=== PATIENT | male | born 1935 | race Caucasian/White ===

== ENCOUNTER → 2017-07-24 | Outpatient (CLI) | payer MEDICARE, BC ==
[~2017-07-24] MED LIST: ASPI-1471 PO; ASPI-757 PO; CHOL10005 PO; FLU IM; LISI-362 PO; METF-410 PO; METF500T4 PO; NAPR220C12 PO; PNEU0.5D3 IM; TAMS0.4C70 PO
--- NOTE | 2017-07-24 16:21 | RADIOLOGY IMAGING REPORT ---
FACILITY: [facility] - [place] PATIENT NAME: Jose Skelton : 1935 MR: [id number] V: [id number] EXAM DATE: ORDERING PHYSICIAN: LEIGHANN MOSCOSO TECHNOLOGIST: Location: [facility] - [place] Patient: Jose Skelton : 1935 Visit/Account:[id number] Date of Sevice: 07/24/2017 Exam type: CHEST PA AND LAT History: Hypoxia, benign hypertension Comparison: None. Findings: The lungs are free of acute effusions, infiltrates or edema. The cardiac silhouette is normal in siz e however there is marked ectasia the thoracic aorta. Mild spondylotic changes of the thoracic spine IMPRESSION: 1. Marked ectasia the thoracic aorta although no evidence of pulmonary consolidation or overt pulmon nicole edema Report Dictated By: Nichole Montgomery MD at 07/24/2017 4:16 PM Report E-Signed By: Nichole Montgomery MD at 07/24/2017 4:17 PM WSN:[email or web address]
== END ==
LOC: RAD 15:42
PROVIDERS: ATTEND Internal Medicine
DX: I77.810 Thoracic aortic ectasia (principal)
CPT/HCPCS: 71046

== ENCOUNTER → 2017-07-25 | Outpatient (CLI) | payer MEDICARE, BC ==
[~2017-07-25] MED LIST changes: +IOPAMIDOL 76% 75 ML INFUS BTL 75 ML ONE
--- NOTE | 2017-07-25 19:20 | RADIOLOGY IMAGING REPORT ---
FACILITY: [facility] - [place] PATIENT NAME: Jose Skelton : 1935 MR: [id number] V: [id number] EXAM DATE: ORDERING PHYSICIAN: LEIGHANN MOSCOSO TECHNOLOGIST: Location: [facility] - [place] Patient: Jose Skelton : 1935 Visit/Account:[id number] Date of Sevice: 07/25/2017 EXAMINATION: CTA of the chest without and with IV contrast HISTORY: Hypertension. Abnormal chest x-ray. Evaluate thoracic aorta. TECHNIQUE: Axial CT images of the chest were initially obtained without IV contrast. Thin axial CT im ages of the chest were then obtained with IV contrast during maximal arterial opacification. Reconstr uction of the source data set includes multiplanar 2D sagittal and coronal images, and 3D coronal and sagittal MIP images. [employer]ist images have been stored on PACS. One of the following dose optimization techniques was utilized in the performance of this exam: Autom ated exposure control; adjustment of the mA and/or kV according to the patient's size; or use of an i terative reconstruction technique. Specific details can be referenced in the facility's radiology C T exam operational policy. Contrast: 75 mL of IV Isovue-370. COMPARISON: Chest radiograph 07/24/2017. FINDINGS: Angiographic findings: Thoracic aorta: No aortic dissection. There is mild aneurysmal dilatation of the ascending thoracic a beverly, measuring 4.1 cm in diameter (coronal image 55). The descending thoracic aorta is moderately to rtuous but normal in caliber. The aorta measures 3.3 cm along the arch, 3.3 cm along the upper descen ding thoracic aorta, and 3.0 cm along the lower descending thoracic aorta. Origins of the great vesse ls are widely patent along the arch, with conventional arch anatomy. Mild atherosclerotic calcificati on along the aorta. Pulmonary arteries: Exam was not performed with pulmonary embolism protocol. The pulmonary arteries a re poorly opacified and not well evaluated on this exam. Heart: Normal heart size. Coronary artery calcifications. No pericardial effusion. Abdominal aorta: The abdominal aorta is visualized to below the level of the renal arteries. The imag ed abdominal aorta is mildly tortuous but patent and normal in caliber, without aneurysm or dissectio n. Abdominal aorta branch vessels: The celiac artery and SMA are widely patent. Bilaterally renal arteri es are patent, without stenosis. Additional nonvascular findings: Lungs and pleura: Negative. Mediastinum and rylie: Small hiatal hernia. Chest lymph node assessment: Negative. Bones: Negative. Chest wall: Negative. Lower neck: Negative. Upper abdomen: Cholecystectomy. Partially visualized bilateral renal cysts. IMPRESSION: 1. 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 No aortic dissection . 2. The descending thoracic aorta is tortuous but normal in caliber. 3. No acute findings in the chest on arterial phase imaging. 4. Coronary artery calcifications. 5. Small hiatal hernia. Report Dictated By: Jared King MD at 07/25/2017 7:02 PM Report E-Signed By: Jared King MD at 07/25/2017 7:17 PM WSN:[id number]
== END ==
LOC: CT 16:29
PROVIDERS: ATTEND Internal Medicine
DX: I71.4 Abdominal aortic aneurysm, without rupture (principal); I25.10 Atherosclerotic heart disease of native coronary artery without angina pectoris; K44.9 Diaphragmatic hernia without obstruction or gangrene
CPT/HCPCS: 71275; Q9967

== ENCOUNTER → 2017-07-30 | Outpatient (CLI) | payer MEDICARE, BC ==
[~2017-07-30] MED LIST changes: -IOPAMIDOL 76% 75 ML INFUS BTL 75 ML ONE
== END ==
LOC: RESP 01:43
PROVIDERS: ATTEND Internal Medicine
DX: J98.4 Other disorders of lung (principal)
CPT/HCPCS: 94060; 94729

== ENCOUNTER → 2017-09-24 | Outpatient (REF) | payer MEDICARE, BC | LOC: ZZSENDIN 16:24 → EDSTATUS 16:25 → ZZSENDIN 16:26 → EDSTATUS 16:26 | PROVIDERS: ATTEND Internal Medicine | DX: R19.7 Diarrhea, unspecified (principal) | CPT/HCPCS: 82274; 83630; 87045; 87205; 87324; 87449 ==

== ENCOUNTER 2018-11-08 17:51 | Emergency (ER) | payer MEDICARE, BC ==
[~2018-11-08 17:51] MED LIST changes: +ASPI81TA94 PO; -METF-410 PO; +METF-450 PO
[2018-11-08] MEDS ORDERED: OPTIVITE PO (17:58)
--- NOTE | 2018-11-08 18:07 | ER Report ---
History and Physical Time Seen By MD: 18:07 Hx. of Stated Complaint: pt reports pain behind his right ear starting this morning. HPI/ROS CHIEF COMPLAINT: ear pain HISTORY OF PRESENT ILLNESS: This is an 83 year old male. He had pain behind his right ear this morning. [place] like there was some fluid there. Also some pain in front of the ear. Mild discomfort with moving the jaw. He does wear hearing aides, but no change in hearing. No fevers noted. No headache. No weakness or numbness in face or problems with speech. No recent dental problems. Allergies: Coded Allergies: No Known Drug Allergies (Unverified , 11/08/18) Home Meds Active Scripts Lisinopril (LISINOPRIL) 10 Mg Tablet, 10 MG PO QDAY, #90 TAB 3 Refills Prov:LEIGHANN ANDERSON MD 12/20/17 Metformin Hcl (METFORMIN HCL ER) 500 Mg Tab.er.24, 3 TAB PO QPM, #180 TAB Prov:LEIGHANN ANDERSON MD 10/30/17 Reported Medications [optivite] No Conflict Check, 1 TAB PO DAILY 11/08/18 Aspirin (ASPIRIN) 81 Mg Tab.chew, 81 MG PO QDAY, TAB.CHEW 10/30/17 Cholecalciferol (Vitamin D3) (VITAMIN D3) 1,000 Unit Tablet, 2 TAB PO DAILY, #100 TAB 4 Refills 11/04/14 Discontinued Scripts Metformin Hcl (METFORMIN HCL ER) 500 Mg Tab.er.24, 3 TAB PO QPM, #180 TAB Prov:LEIGHANN ANDERSON MD 10/30/17 Reviewed Nurses Notes: Yes Smoking Status: Never Smoker Hx Substance Use Disorder: No Hx Alcohol Use: No Constitutional Vital Sign - Last 24 Hours 11/08/18 11/08/18 17:58 18:50 Temp 98.0 Pulse 70 76 Resp 14 16 B/P (MAP) 147/91 131/97 (108) Pulse Ox 91 91 O2 Delivery Nasal Cannula Room Air Physical Exam General Appearance: Alert, no acute distress. Eyes: Pupils equal and round no injection. ENT: Normal oral mucosa. Moist mucous membranes. Normal oral mucosa and posterior oropharynx. No swelling or redness of gums. Has some redness and mild edema in right ear canal, normal TM. Normal canal and TM on left. Pain with palpation around pinna and in front of ear. Neck: Neck is supple and non tender. Respiratory: Breathing easily. Cardiac: regular rate and rhythm Musculoskeletal: No pain in cervical spine or palpation of the skull. Skin: No lesions, mild redness around the ear. DIFFERENTIAL DIAGNOSIS: After history and physical exam differential diagnosis was considered for a patient with pain around the ear and redness consistent with otitis externa as the cause. Medical Decision Making ED Course/Re-evaluation ED Course Discussed otitis externa, will provide Cortisporin Otic suspension. Recommended follow-up with PCP, Dr. Anderson, if not improving in the next 3-4 days. Tylenol as needed for pain. Decision to Disposition Date: Nov 08, 2018 Decision to Disposition Time: 18:24 Depart Departure Latest Vital Signs Vital Signs Date Time Temp Pulse Resp B/P (MAP) Pulse Ox O2 Delivery O2 Flow Rate FiO2 11/08/18 18:50 76 16 131/97 (108) 91 Room Air 11/08/18 17:58 98.0 Impression: Primary Impression: Otitis externa Condition: Improved Disposition: HOME OR SELF-CARE Referrals: LEIGHANN ANDERSON MD (PCP) Patient Instructions: Otitis Externa (ED) Additional Instructions: Apply 4 drops of the cortisporin OTIC suspension in the ear three times a day for 7 days. Use Tylenol as needed for pain. Problem Qualifiers Primary Impression: Otitis externa Otitis externa type: unspecified type Chronicity: acute Laterality: right Qualified Codes: H60.501 - Unspecified acute noninfective otitis externa, right ear ASAD FOSTER MD Nov 08, 2018 18:07
[2018-11-08] MEDS ORDERED: POLYMYXIN B RIGHT EAR ONE ×2 (18:25→18:35)
[2018-11-08] MEDS ORDERED: HYDROCORTISONE RIGHT EAR ONE ×2 (18:25→18:35)
[2018-11-08] MEDS ORDERED: NEOMYCIN RIGHT EAR ONE ×2 (18:25→18:35)
[2018-11-08 18:50] VITALS: BP 131/97
[2018-11-09] MEDS ORDERED: AMOX-559 PO (13:05)
== END 2018-11-08 18:57 | disposition home or self-care (01) ==
LOC: ER 18:12
DX: H60.501 Unspecified acute noninfective otitis externa, right ear (principal)
CPT/HCPCS: 99282; A9270

== ENCOUNTER 2018-11-09 10:16 | Emergency (ER) | payer MEDICARE, BC ==
[~2018-11-09 10:16] MED LIST changes: +OPTIVITE PO
--- NOTE | 2018-11-09 10:29 | ER Report ---
History and Physical Time Seen By MD: 10:29 HPI/ROS CHIEF COMPLAINT: Right-sided facial swelling HISTORY OF PRESENT ILLNESS: Patient is an 83-year-old male here with complaints of right-sided facial swelling at the level of the parotid gland. Patient was recently diagnosed with otitis externa, placed on otic antimicrobial drops. Patient reports that he subsequently developed facial swelling in the interim. The site is tender to palpation, mildly erythematous without fluctuance. Patient is afebrile, hemodynamically stable at time of evaluation. Patient is not currently on systemic antimicrobial therapy. REVIEW OF SYSTEMS: Constitutional: No fever, no chills. Eyes: No discharge. ENT: No sore throat. + Otalgia, swelling and erythema anterior to the right ear Cardiovascular: No chest pain, no palpitations. Respiratory: No cough, no shortness of breath. Gastrointestinal: No abdominal pain, no vomiting. Genitourinary: No hematuria. Musculoskeletal: No back pain. Skin: No rashes. Neurological: No headache. Cranial nerves intact Allergies: Coded Allergies: No Known Drug Allergies (Unverified , 11/08/18) Home Meds Active Scripts Amoxicillin/Pot Clav 875-125 Mg Tab (AUGMENTIN 875-125 TABLET) 1 Each Tablet, 1 TAB PO Q12H for 7 Days, #14 TAB Prov:BHARGAV CHUA DO 11/09/18 Lisinopril (LISINOPRIL) 10 Mg Tablet, 10 MG PO QDAY, #90 TAB 3 Refills Prov:LEIGHANN MOSCOSO MD 12/20/17 Metformin Hcl (METFORMIN HCL ER) 500 Mg Tab.er.24, 3 TAB PO QPM, #180 TAB Prov:LEIGHANN MOSCOSO MD 10/30/17 Reported Medications [optivite] No Conflict Check, 1 TAB PO DAILY 11/08/18 Aspirin (ASPIRIN) 81 Mg Tab.chew, 81 MG PO QDAY, TAB.CHEW 10/30/17 Cholecalciferol (Vitamin D3) (VITAMIN D3) 1,000 Unit Tablet, 2 TAB PO DAILY, #100 TAB 4 Refills 11/04/14 Discontinued Scripts Metformin Hcl (METFORMIN HCL ER) 500 Mg Tab.er.24, 3 TAB PO QPM, #180 TAB Prov:LEIGHANN MOSCOSO MD 10/30/17 Smoking Status: Never Smoker Hx Substance Use Disorder: No Hx Alcohol Use: No Constitutional Vital Sign - Last 24 Hours 11/09/18 11/09/18 11/09/18 11/09/18 10:22 10:30 10:58 11:00 Temp 98.2 Pulse 84 85 Resp 16 B/P (MAP) 152/84 130/72 (91) 127/73 (91) Pulse Ox 91 89 89 11/09/18 11/09/18 12:00 12:30 Pulse 85 83 B/P (MAP) 127/76 (93) Pulse Ox 89 90 Physical Exam General Appearance: The patient is alert, has no immediate need for airway protection and no signs of toxicity. No acute distress Eyes: Pupils equal and round no pallor or injection. ENT, Mouth: Mucous membranes are moist.+ Erythema and tenderness on palpation of the anterior to the right ear, tympanic membranes nonerythematous with no air- fluid levels, ear canals non-erythematous with scant cerumen present Respiratory: There are no retractions, lungs are clear to auscultation. Cardiovascular: Regular rate and rhythm. [ ] Gastrointestinal: Abdomen is soft and non tender, no masses, bowel sounds normal. Neurological: No focal neurological deficits, cranial nerves intact Skin: Mild erythema at the site of swelling anterior to the right ear Musculoskeletal: Neck is supple non tender. Extremities are nontender, nonswollen and have full range of motion. DIFFERENTIAL DIAGNOSIS: After history and physical exam differential diagnosis was considered for parotitis, abscess, cellulitis, sialolithiasis Medical Decision Making Data Points Result Diagram: 11/09/18 1056 11/09/18 1056 Laboratory Hematology Test 11/09/18 10:56 Red Blood Count 4.09 M/uL (4.00-5.60) Mean Corpuscular Volume 103.8 fL (80.0-96.0) Mean Corpuscular Hemoglobin 35.0 pg (26.0-33.0) Mean Corpuscular Hemoglobin Concent 33.8 g/dL (32.0-36.0) Red Cell Distribution Width 14.2 % (11.5-14.5) Mean Platelet Volume 8.3 fL (7.2-11.1) Neutrophils (%) (Auto) 77.5 % (39.4-72.5) Lymphocytes (%) (Auto) 10.8 % (17.6-49.6) Monocytes (%) (Auto) 9.1 % (4.1-12.4) Eosinophils (%) (Auto) 2.0 % (0.4-6.7) Basophils (%) (Auto) 0.6 % (0.3-1.4) Nucleated RBC Relative Count (auto) 0.0 /100WBC Neutrophils # (Auto) 7.5 K/uL (2.0-7.4) Lymphocytes # (Auto) 1.0 K/uL (1.3-3.6) Monocytes # (Auto) 0.9 K/uL (0.3-1.0) Eosinophils # (Auto) 0.2 K/uL (0.0-0.5) Basophils # (Auto) 0.1 K/uL (0.0-0.1) Nucleated RBC Absolute Count (auto) 0.00 K/uL Erythrocyte Sedimentation Rate 10 mm/HOUR (0-20) Sodium Level 141 mmol/L (137-145) Potassium Level 4.5 mmol/L (3.5-5.0) Chloride Level 106 mmol/L (98-107) Carbon Dioxide Level 21 mmol/L (22-30) Blood Urea Nitrogen 17 mg/dl (9-21) Creatinine 1.20 mg/dl (0.66-1.25) Glomerular Filtration Rate Calc 57.5 Random Glucose 178 mg/dl (75-110) Calcium Level 9.4 mg/dl (8.4-10.2) Total Bilirubin 2.3 mg/dl (0.2-1.3) Aspartate Amino Transf (AST/SGOT) 26 U/L (0-35) Alanine Aminotransferase (ALT/SGPT) 35 U/L (0-56) Alkaline Phosphatase 54 U/L (0-126) Total Protein 8.0 g/dl (6.3-8.2) Albumin 4.4 g/dl (3.5-5.0) Chemistry Test 11/09/18 10:56 White Blood Count 9.6 k/uL (4.5-11.0) Red Blood Count 4.09 M/uL (4.00-5.60) Hemoglobin 14.3 g/dL (14.0-18.0) Hematocrit 42.4 % (42.0-52.0) Mean Corpuscular Volume 103.8 fL (80.0-96.0) Mean Corpuscular Hemoglobin 35.0 pg (26.0-33.0) Mean Corpuscular Hemoglobin Concent 33.8 g/dL (32.0-36.0) Red Cell Distribution Width 14.2 % (11.5-14.5) Platelet Count 223 K/uL (150-450) Mean Platelet Volume 8.3 fL (7.2-11.1) Neutrophils (%) (Auto) 77.5 % (39.4-72.5) Lymphocytes (%) (Auto) 10.8 % (17.6-49.6) Monocytes (%) (Auto) 9.1 % (4.1-12.4) Eosinophils (%) (Auto) 2.0 % (0.4-6.7) Basophils (%) (Auto) 0.6 % (0.3-1.4) Nucleated RBC Relative Count (auto) 0.0 /100WBC Neutrophils # (Auto) 7.5 K/uL (2.0-7.4) Lymphocytes # (Auto) 1.0 K/uL (1.3-3.6) Monocytes # (Auto) 0.9 K/uL (0.3-1.0) Eosinophils # (Auto) 0.2 K/uL (0.0-0.5) Basophils # (Auto) 0.1 K/uL (0.0-0.1) Nucleated RBC Absolute Count (auto) 0.00 K/uL Erythrocyte Sedimentation Rate 10 mm/HOUR (0-20) Glomerular Filtration Rate Calc 57.5 Calcium Level 9.4 mg/dl (8.4-10.2) Total Bilirubin 2.3 mg/dl (0.2-1.3) Aspartate Amino Transf (AST/SGOT) 26 U/L (0-35) Alanine Aminotransferase (ALT/SGPT) 35 U/L (0-56) Alkaline Phosphatase 54 U/L (0-126) Total Protein 8.0 g/dl (6.3-8.2) Albumin 4.4 g/dl (3.5-5.0) EKG/Imaging Imaging PATIENT NAME: Jose Skelton : 1935 MR: [id number] V: [id number] EXAM DATE: ORDERING PHYSICIAN: BHARGAV CHUA TECHNOLOGIST: Location: [facility] [place] Patient: Jose Skelton : 1935 Visit/Account:[id number] Date of Sevice: 11/09/2018 CT OF THE NECK WITH CONTRAST INDICATION: Erythema and fluctuance anterior to the right ear. COMPARISON: non available TECHNIQUE: Axial CT images was obtained through the neck soft tissues after administration of 80 mL Isovue-370 IV contrast. Reformatted coronal and sagittal images were reviewed. One of the following dose optimization techniques was utilized in the performance of this exam: Automated exposure control; adjustment of the mA and/or kV according to the patient's size; or use of an iterative reconstruction technique. Specific details can be referenced in the facility's radiology CT exam operational policy. FINDINGS: The right parotid gland is enlarged and edematous compared to the left side. There is mild surrounding inflammation mainly in the superior lateral aspect near the anterior aspect of the ear. There is no defined fluid collection or mass. This inflammation and edematous changes extend to the external auditory canal. The external auditory canal is clear. The remaining glandular structures are symmetric without focal abnormality. The remaining soft tissues the neck show no inflammation, fluid or fluid collection. No enlarged lymph nodes or masses. Fat and muscle planes are maintained. The retropharyngeal soft tissues and the prevertebral soft tissues are normal. The true and false vocal cords are unremarkable. The vascular structures are within normal limits. The visualized ascending aorta is upper limits normal for size at 4 cm without acute or focal abnormality. Lung apices are clear. The visualized brain is unremarkable. Bony structures show no acute abnormality or discrete lesions. Cervical spine shows diffuse degenerative changes which are at least moderate including disc space narrowing, endplate changes, osteophytes and facet arthropathy. No bony canal stenosis. Multilevel neural foramina narrowing. The endplates appear to be maintained. No obvious disc herniation. The mastoid air cells bilaterally are poorly pneumatized. Visualized sinuses are clear. IMPRESSION: 1. The right parotid gland is enlarged and edematous compared to left side this extends with inflammation to the subcutaneous fat in the superior lateral aspect to the anterior aspect of the right ear and external auditory canal. The external auditory canal is patent. There is no definite fluid collection or mass at this time. This may be secondary to acute infectious or inflammatory changes to the parotid gland. 2. Soft tissues of the neck are otherwise unremarkable. 3. Degenerative changes of the cervical spine. 4. The ascending aorta visualized is upper limits normal for size without acute abnormality. ED Course/Re-evaluation ED Course Patient is an 83-year-old male here with complaints of acute onset of swelling of the site of the parotid gland and surrounding soft tissue with erythema, tenderness. CT imaging with contrast was completed and did not identify a discrete abscess or fluid collection but there is soft tissue edema. Right ear canal is nonerythematous, nontender, tympanic membrane was nonerythematous with no bulging or air-fluid levels. Patient was given IV clindamycin, placed on Augmentin seven-day course. Recommend close PCP follow-up, ENT follow-up. Labs are unremarkable with no leukocytosis, electrolytes are stable. Return precautions provided. Decision to Disposition Date: Nov 09, 2018 Decision to Disposition Time: 13:02 Depart Departure Latest Vital Signs Vital Signs Date Time Temp Pulse Resp B/P (MAP) Pulse Ox O2 Delivery O2 Flow Rate FiO2 11/09/18 12:30 83 90 11/09/18 12:00 127/76 (93) 11/09/18 10:22 98.2 16 Impression: Primary Impression: Facial swelling Condition: Improved Disposition: HOME OR SELF-CARE Referrals: LEIGHANN MOSCOSO MD (PCP) New Scripts Amoxicillin/Pot Clav 875-125 Mg Tab (AUGMENTIN 875-125 TABLET) 1 Each Tablet 1 TAB PO Q12H for 7 Days, #14 TAB Prov: BHARGAV CHUA DO 11/09/18 Patient Instructions: Cellulitis (ED) Additional Instructions: Please drink plenty of water. Please take Augmentin 1 tablet twice daily for 7 days. Please follow-up with your family doctor in the next 24-48 hours. Please return promptly if you develop increased swelling, difficulty swallowing, difficulty breathing, fevers, visual changes. BHARGAV CHUA DO Nov 09, 2018 10:29
[2018-11-09 11:10] LABS: PLATELET COUNT, AUTOMATED 223 K/uL (150-450)
[2018-11-09] MEDS ORDERED: IOPAMIDOL 76% 100 ML INFUS BTL 100 ML ONE (11:37)
[2018-11-09 12:00] VITALS: BP 127/76
--- NOTE | 2018-11-09 12:56 | RADIOLOGY IMAGING REPORT ---
FACILITY: [facility] PATIENT NAME: Jose Skelton : 1935 MR: [id number] V: [id number] EXAM DATE: ORDERING PHYSICIAN: BHARGAV CHUA TECHNOLOGIST: Location: [facility] - [place], [place] Patient: Jose Skelton : 1935 Visit/Account:[id number] Date of Sevice: 11/09/2018 CT OF THE NECK WITH CONTRAST INDICATION: Erythema and fluctuance anterior to the right ear. COMPARISON: non available TECHNIQUE: Axial CT images was obtained through the neck soft tissues after administration of 80 mL I sovue-370 IV contrast. Reformatted coronal and sagittal images were reviewed. One of the following dose optimization techniques was utilized in the performance of this exam: Autom ated exposure control; adjustment of the mA and/or kV according to the patient's size; or use of an i terative reconstruction technique. Specific details can be referenced in the facility's radiology C T exam operational policy. FINDINGS: The right parotid gland is enlarged and edematous compared to the left side. There is mild surroundin g inflammation mainly in the superior lateral aspect near the anterior aspect of the ear. There is no defined fluid collection or mass. This inflammation and edematous changes extend to the external aud itory canal. The external auditory canal is clear. The remaining glandular structures are symmetric without focal abnormality. The remaining soft tissue s the neck show no inflammation, fluid or fluid collection. No enlarged lymph nodes or masses. Fat an d muscle planes are maintained. The retropharyngeal soft tissues and the prevertebral soft tissues ar e normal. The true and false vocal cords are unremarkable. The vascular structures are within normal limits. The visualized ascending aorta is upper limits normal for size at 4 cm without acute or focal abnormality. Lung apices are clear. The visualized brain is unremarkable. Bony structures show no ac [place] abnormality or discrete lesions. Cervical spine shows diffuse degenerative changes which are at l east moderate including disc space narrowing, endplate changes, osteophytes and facet arthropathy. No bony canal stenosis. Multilevel neural foramina narrowing. The endplates appear to be maintained. No obvious disc herniation. The mastoid air cells bilaterally are poorly pneumatized. Visualized sinuse s are clear. IMPRESSION: 1. The right parotid gland is enlarged and edematous compared to left side this extends with inflamma tion to the subcutaneous fat in the superior lateral aspect to the anterior aspect of the right ear a nd external auditory canal. The external auditory canal is patent. There is no definite fluid collect ion or mass at this time. This may be secondary to acute infectious or inflammatory changes to the pa rotid gland. 2. Soft tissues of the neck are otherwise unremarkable. 3. Degenerative changes of the cervical spine. 4. The ascending aorta visualized is upper limits normal for size without acute abnormality. Report Dictated By: Toney Casanova at 11/09/2018 12:16 PM Report E-Signed By: Toney Casanova at 11/09/2018 12:51 PM WSN:[email or web address]
[2018-11-09] MEDS ORDERED: CLINDAMYCIN(*) 600 MG/NS 50 ML 50 ML IVPB ONE (13:00)
[2018-11-09] MEDS ORDERED: AMOX-559 PO (13:05)
== END 2018-11-09 13:40 | disposition home or self-care (01) ==
LOC: ER 10:34
DX: M79.89 Other specified soft tissue disorders (principal); L53.9 Erythematous condition, unspecified
CPT/HCPCS: 70491; 85025; 85651; 96365; 99284; J3490; Q9967; 82040; 82247; 82310; 82374; 82435; 82565; 82947; 84075; 84132; 84155; 84295; 84450; 84460; 84520

== ENCOUNTER → 2018-12-26 | Outpatient (CLI) | payer MEDICARE, BC ==
[~2018-12-26] MED LIST changes: +AMOX-559 PO; +IOPAMIDOL 76% 100 ML INFUS BTL 100 ML ONE
--- NOTE | 2018-12-26 18:48 | RADIOLOGY IMAGING REPORT ---
FACILITY: [facility] - [place] PATIENT NAME: Jose Skelton : 1935 MR: [id number] V: [id number] EXAM DATE: ORDERING PHYSICIAN: LEIGHANN MOSCOSO TECHNOLOGIST: Location: [facility] - [place] Patient: Jose Skelton : 1935 Visit/Account:[id number] Date of Sevice: 12/26/2018 EXAMINATION: CT neck with IV contrast HISTORY: Prior acute parotiditis TECHNIQUE: CT was obtained through the neck following IV contrast administration. Sagittal and co priyanka reformatted images were generated. 75 mL of IV Isovue-370 injected. One of the following dose optimization techniques was utilized in the performance of this exam: autom ated exposure control; adjustment of the mA and/or kV according to patient size; or use of iterative reconstruction technique. Specific details can be referenced in the facility's radiology CT exam ope rational policy. 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 Otherwise normal parotid glan ds. Normal submandibular glands. Normal thyroid gland. Pharyngeal and retropharyngeal soft tissues: Normal. 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 Larynx/glottis and airway: Normal. Lymph nodes: Normal. Vessels: No significant finding. Visualized orbits / brain: No significant finding. Upper chest: Normal. Bones/sinuses/mastoid air cells: Multilevel cervical spine disc space degeneration, facet arthropathy and degenerative foraminal narrowing. IMPRESSION: 1. No acute finding. 2. Resolution of the previously seen inflammation near the right parotid gland. 3. Benign gas within the left parotid gland ducts has increased. 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 4. Otherwise normal for age neck CT. Report Dictated By: Obey Campo MD at 12/26/2018 6:34 PM Report E-Signed By: Obey Campo MD at 12/26/2018 6:40 PM WSN:[email or web address]
== END ==
LOC: CT 01:37
PROVIDERS: ATTEND Internal Medicine
DX: K11.21 Acute sialoadenitis (principal)
CPT/HCPCS: 36415; 70491; 82565; 84520; Q9967